=== PATIENT | female | born 1990 | race Caucasian/White ===

== ENCOUNTER → 2025-06-19 | Day surgery (SDC) | payer BC ==
[2025-06-11 08:43] LABS: BASOPHILS % 1.3 % (0.0-1.0); EOSINOPHILS % 1.9 % (0.0-6.0); LYMPHOCYTES % 20.6 % (18.0-39.1); MONOCYTES % 6.5 % (4.4-11.3); NEUTROPHILS % 69.5 % (38.7-80.0); RED CELL DISTRIBUTION WIDTH 15.1 % (11.7-14.4)
[2025-06-11 09:08] LABS: LEUKOCYTE ESTERASE ,URINE TRACE (NEGATIVE); PROTEIN,URINE DIPSTICK NEGATIVE (NEGATIVE); URINE UROBILINOGEN 0.2 mg/dL (0.2 - 1)
[2025-06-11 09:15] LABS: EST GLOMERULAR FILTRATION RATE 115.0 ML/MIN (>=60)
[~2025-06-19] MED LIST: ACETAMINOPHEN 1000 MG/100 ML 100 ML IV ONE; DEXAMETHASONE SOD PHOS INJ 4 MG/ML SDV ONE; FAMOTIDINE 20 MG/2 ML VIAL IV ONE; FENTANYL CITRATE/PF 100MCG/2 ML INJ ONE; GLYCOPYRROLATE INJ 0.2 MG/ML VIAL ONE; HYDROCODONE/APAP 7.5MG-325MG 1 EA TAB ONE; HYDROMORPHONE 2MG/ML ONE; LACTATED RINGER'S 1,000 ML ONE; LIDOCAINE HCL 2% LOCAL INJ 5 ML SDV VIAL INJ ONE; MIDAZOLAM HCL 2 MG/2 ML VIAL ONE; NEOSTIGMINE 1 MG/ML 10ML VIAL ONE; ONDANSETRON HCL INJ 2MG/ML 2ML 2 MG/ML VIAL ONE; PHENYLEPHRINE HCL 1% 10 MG/ML VIAL ONE; PROPOFOL IV EMULSION 10 MG/ML 20 ML VIAL ONE; ROCURONIUM BROMIDE 1 ML IV ONE; SEVOFLURANE INHAL SOLN 250 ML PEN BTL ONE
[2025-06-19] MEDS: FENTANYL CITRATE/PF 100MCG/2 ML INJ IV ONE ×2 (10:53→11:00)
[2025-06-19] MEDS: HYDROCODONE/APAP 7.5MG-325MG 1 EA TAB PO ONE (11:35)
[2025-06-19 11:50] VITALS: BP 126/85; PULSE 60; RESP 16; O2SAT 99
== END | disposition home or self-care (01) ==
LOC: OR 06:35
PROVIDERS: ATTEND Surgery
DX: K80.10 Calculus of gallbladder with chronic cholecystitis without obstruction (principal); F41.9 Anxiety disorder, unspecified; F32.A Depression, unspecified; Z01.812 Encounter for preprocedural laboratory examination
CPT/HCPCS: 36415; 47562; 80053; 81003; 81025; 85025; 88304; C1766; J0131; J1100; J1171; J1308; J2003; J2250; J2371; J2405; J2704; J2710; J3010; J7121